=== PATIENT | male | born 1950 | race Caucasian/White ===

== ENCOUNTER 2020-01-05 09:48 | Emergency (ER) | payer OTHER ==
[2020-01-05] MEDS ORDERED: Tetracaine 0.5% OPHTH SOLN/PF 4 ML BOT ONE (10:05)
[2020-01-05] MEDS ORDERED: Fluorescein Opthalmic Strip ONE (10:05)
--- NOTE | 2020-01-05 11:36 | RAD ---
PORTABLE CHEST 1 VIEW: DATE: 01/05/2020. TIME: 10:52 AM. HISTORY: Cough. FINDINGS: The heart size is normal. The lungs are well expanded without lobar consolidation, pneumothoraces, o r pleural effusions. IMPRESSION: No radiographic evidence of acute cardiopulmonary process. POS: [facility]
[2020-01-06 12:02] LABS: SARS-CoV-2 MS2 Positive; SARS-CoV-2 N Gene Negative; SARS-CoV-2 S Gene Negative; SARS-CoV-2 orf1ab Negative
== END 2020-01-05 11:10 | disposition home or self-care (01) ==
LOC: MADERS 09:48
DX: H10.9 Unspecified conjunctivitis (principal); R06.2 Wheezing; F17.210 Nicotine dependence, cigarettes, uncomplicated; Z20.828 Contact with and (suspected) exposure to other viral communicable diseases; Z79.891 Long term (current) use of opiate analgesic; Z79.899 Other long term (current) drug therapy
CPT/HCPCS: 71045; 87635; U0002